=== PATIENT | male | born 1970 | race Caucasian/White ===

== ENCOUNTER 2017-04-04 14:01 | Emergency (ER) | payer MEDICAID ==
[~2017-04-04] VITALS: Ht 185.4 cm; Wt 75.0 kg
[~2017-04-04 14:01] MED LIST: DIAZ5TAB4 PO; GEMF600T3 PO; OXYC1TAB9 PO
[2017-04-04 14:07] VITALS: BP 128/74
== END 2017-04-04 17:04 | disposition home or self-care (01) ==
LOC: ED 16:57
DX: S13.4XXA Sprain of ligaments of cervical spine, initial encounter (principal); S16.1XXA Strain of muscle, fascia and tendon at neck level, initial encounter; M47.892 Other spondylosis, cervical region; M54.12 Radiculopathy, cervical region; G89.29 Other chronic pain; M54.2 Cervicalgia; X58.XXXA Exposure to other specified factors, initial encounter; Y93.89 Activity, other specified; Y92.89 Other specified places as the place of occurrence of the external cause; Y99.8 Other external cause status
CPT/HCPCS: 72125; 99284